=== PATIENT | male | born 1960 | race Two or more races ===

== ENCOUNTER 2016-10-24 10:42 | Emergency (ER) | payer MEDICAID ==
[~2016-10-24 10:42] MED LIST: ADULT LOW DOSE81 M1 PO; ALBENZA200 MG PO; BACLOFEN10 MG PO; BP MED; CARVEDILOL25 MG PO; COZAAR100 MG; COZAAR50 MG; FLEXERIL10 MG PO; FLUOXETINE HCL40 MG; GLIPIZIDE ER10 M1 PO; GLIPIZIDE ER10 MG PO; GLIPIZIDE10 MG PO; GLIPIZIDE5 M2 PO; GLUCOPHAGE1000 M1 PO; GLUCOPHAGE1000 MG PO; GLUCOPHAGE500 MG; GLUCOPHAGE500 MG PO; HYDROCODON-ACE1 EA15 PO; HYZAAR 50-12.51 TA1 PO; IBUPROFEN800 M1 PO; LISINOPRIL20 MG PO; LOSARTAN-HCTZ1 EAC6 PO; MONOPRIL20 MG; MONOPRIL20 MG PO; MOTRIN800 MG PO; NORCO 5/325 TAB1 TAB; NORCO 5/325 TAB1 TAB PO; OMEPRAZOLE MAGN20 M1 PO; OMEPRAZOLE20 M3 PO; ORAL DIABETIC MED; PEN-VEE K500 MG PO; PEPCID20 MG PO; PEPCID40 MG PO; PRILOSEC20 M1 PO; SEROQUEL XR400 M1 PO; SEROQUEL200 MG; SEROQUEL200 MG PO; SEROQUEL300 MG; TRICOR145 M1 PO; TRICOR145 M2 PO; ULTRAM50 MG PO; VITAMIN D250000 UNI1 PO; ZOCOR40 M1 PO
[2016-10-24] MEDS ORDERED: VITAMIN D35000 UNI2 PO (10:52)
[2016-10-24 11:53] LABS: ANION GAP 12 mmol/L (0-20); BLOOD UREA NITROGEN 18 mg/dl (6-24); CALCIUM 8.9 mg/dl (8.5-10.5); CARBON DIOXIDE-VENOUS 28 mmol/L (22-32); CHLORIDE 106 mmol/l (96-110); CREATININE 0.99 mg/dl (0.60-1.30); GLUCOSE 256 mg/dL (70-110); POTASSIUM 3.9 mmol/L (3.7-5.1); SODIUM 142 mmol/L (135-145); eGFR VALUE FOR BLACK >90 mL/Min
== END 2016-10-24 13:42 ==
LOC: EDMED 10:42
PROVIDERS: Emergency Medicine
DX: E11.65 Type 2 diabetes mellitus with hyperglycemia (principal); R51 Headache; E78.5 Hyperlipidemia, unspecified; I10 Essential (primary) hypertension; Z79.899 Other long term (current) drug therapy
CPT/HCPCS: J0780; J1200; J1885; J7030